=== PATIENT | male | born 1950 | race American Indian/Alaskan Native ===

== ENCOUNTER 2018-03-27 15:38 | Emergency (ER) | payer MEDICARE ==
[2018-03-27 15:57] VITALS: BMI 22.2
[2018-03-27] MEDS ORDERED: Lidocaine 2% MPF (5 ml) Inj ONE (16:57)
[2018-03-27] MEDS ORDERED: Sodium Chloride 0.9% 1,000 ML ONE (17:00)
--- NOTE | 2018-03-27 18:04 | RAD ---
PROCEDURE: Radiographs of the Right Shoulder HISTORY: dislocation r/o fx COMPARISON: None available. FINDINGS: BONES: No acute displaced fracture. The distal clavicle and underlying ribs appear intact. JOINTS: Anterior dislocation of the humeral head. SOFT TISSUES: Soft tissue swelling. No evidence of radiopaque foreign body. IMPRESSION: Anterior dislocation. Soft tissue swelling.
[2018-03-27 18:59] VITALS: O2SAT 98
--- NOTE | 2018-03-27 19:00 | RAD ---
Date of service: 03/27/2018 Indication: Reduction Single-view right shoulder Comparison: Right shoulder radiographs performed 03/27/18 Findings: Limited single view of the right shoulder postreduction. Alignment appears satisfactory however cannot be definitively assessed in the absence of orthogonal views. No acute displaced fracture evident. Impression: Limited single view of the right shoulder postreduction. Alignment appears satisfactory however cannot be definitively assessed in the absence of orthogonal views. No acute displaced fracture evident.
[2018-03-27 19:12] VITALS: BP 165/96; PULSE 74; RESP 14; TEMP 99.1
--- NOTE | 2018-03-27 19:56 | C.PDOC ---
History Of Present Illness 67 year old male presents to the ED complaining of right shoulder pain s/p trip and fall yesterday. Patient states he fell directly onto the right shoulder. Denies any head trauma or LOC. Patient now notes decreased ROM of the arm. No numbness or tingling. Time Seen by Provider: 03/27/18 16:07 Chief Complaint (Nursing): Upper Extremity Problem/Injury History Per: Patient History/Exam Limitations: no limitations Onset/Duration Of Symptoms: Days (2) Current Symptoms Are (Timing): Still Present Past Medical History Reviewed: Historical Data, Nursing Documentation, Vital Signs Vital Signs: Last Vital Signs Temp 99.1 F 03/27/18 19:12 Pulse 74 03/27/18 19:12 Resp 14 03/27/18 19:12 BP 165/96 H 03/27/18 19:12 Pulse Ox 98 03/27/18 20:10 - Medical History PMH: HTN - [facility] Procedures CLOSURE SKIN & SUBCUTANEOUS NEC (12/05/13) PSYCHIA INTERV/EVAL NEC (01/08/14) TETANUS TOXOID ADMINIST (12/05/13) Family History: States: Unknown Family Hx - Social History Hx Tobacco Use: Yes Hx Alcohol Use: Yes Hx Substance Use: No - Immunization History Hx Tetanus Toxoid Vaccination: Yes Hx Influenza Vaccination: No Hx Pneumococcal Vaccination: No Review Of Systems Except As Marked, All Systems Reviewed And Found Negative. Cardiovascular: Negative for: Chest Pain Respiratory: Negative for: Shortness of Breath Musculoskeletal: Positive for: Shoulder Pain (right), Other (Decreased ROM). Negative for: Arm Pain, Hand Pain Neurological: Negative for: Weakness, Numbness, Incoordination Physical Exam - Physical Exam Appears: Non-toxic, No Acute Distress Skin: Normal Color, Warm, Dry Head: Atraumatic, Normacephalic Eye(s): bilateral: Normal Inspection Neck: Normal ROM, Supple Chest: Symmetrical Cardiovascular: Rhythm Regular, No Murmur Respiratory: Normal Breath Sounds, No Accessory Muscle Use Extremity: Capillary Refill (< 2 sec), Deformity (Squaring off of the right shoulder), No Swelling, Other (Decreased ROM of right arm secondary to pain) Pulses: Left Radial: Normal, Right Radial: Normal Neurological/Psych: Oriented x3, Normal Speech, Normal Sensation Gait: Steady ED Course And Treatment O2 Sat by Pulse Oximetry: 98 (RA) Pulse Ox Interpretation: Normal - Other Rad Initial X-Ray R Shoulder X-Ray: Viewed By Me, Read By Radiologist Interpretation: FINDINGS: BONES: No acute displaced fracture. The distal clavicle and underlying ribs appear intact. JOINTS: Anterior dislocation of the humeral head. SOFT TISSUES: Soft tissue swelling. No evidence of radiopaque foreign body. IMPRESSION: Anterior dislocation. Soft tissue swelling. Post- Proc X-Ray R Shoulder X-Ray: Viewed By Me, Read By Radiologist Interpretation: Findings: Limited single view of the right shoulder postreduction. Alignment appears satisfactory however cannot be definitively assessed in the absence of orthogonal views. No acute displaced fracture evident. Impression: Limited single view of the right shoulder postreduction. Alignment appears satisfactory however cannot be definitively assessed in the absence of orthogonal views. No acute displaced fracture evident. Medical Decision Making Medical Decision Making: Initial Impression: Right shoulder pain, (+) deformity Initial Plan: --Tylenol 650 mg PO --Right shoulder x-ray --Will attempt shoulder reduction Shoulder reduced successfully *see procedure note below* Shoulder immobilizer placed to right upper extremity. Patient advised to follow up with orthopedics for further evaluation. Referral provided. Disposition Counseled Patient/Family Regarding: Diagnosis, Need For Followup, Rx Given - Disposition Referrals: Garett Juan III, MD [Staff Provider] - Disposition: HOME/ ROUTINE Disposition Time: 18:40 Condition: IMPROVED Additional Instructions: ESTEFANI LUONG, thank you for letting us take care of you today. Your provider was Jose Armando Casas DO and you were treated for FALL/RT SHOULDER PAIN. The emergency medical care you received today was directed at your acute symptoms. If you were prescribed any medication, please fill it and take as directed. It may take several days for your symptoms to resolve. Return to the Emergency Department if your symptoms worsen, do not improve, or if you have any other problems. Please contact your doctor or call one of the physicians/clinics you have been referred to that are listed on the Patient Visit Information form that is included in your discharge packet. Bring any paperwork you were given at discharge with you along with any medications you are taking to your follow up visit. Our treatment cannot replace ongoing medical care by a primary care provider outside of the emergency department. Thank you for allowing the [facility] team to be part of your care today. DO NOT TAKE YOUR ARM OUT OF THE SHOULDER IMMOBILIZER UNTIL YOU SEE THE ORTHOPEDIC DOCTOR. Follow up with the orthopedic doctor in 2-3 days. Prescriptions: Ibuprofen [Motrin] 600 mg PO Q6 PRN #20 tab PRN Reason: Pain, Moderate (4-7) Instructions: Shoulder Dislocation (DC) Forms: [facility] (Setswana) - POA Present On Arrival: Falls Or Trauma - Clinical Impression Clinical Impression: Shoulder dislocation - Scribe Statement The provider has reviewed the documentation as recorded by the Nellie Pickard Provider Attestation: All medical record entries made by the Shahriaribmelani were at my direction and personally dictated by me. I have reviewed the chart and agree that the record accurately reflects my personal performance of the history, physical exam, medical decision making, and the department course for this patient. I have also personally directed, reviewed, and agree with the discharge instructions and disposition. Procedures - Joint Reduction Joint Reduction Site: shoulder (R) Conscious Sedation: Yes (fentanyl 50mcg x2) Reduction Attempts: 1 Pre-Procedure NV Exam: Yes (NVI) Post-Procedure NV Exam: Yes (NVI) post joint reduction film: joint reduced Progress: Reduced by ED attending using scapular rotation.
== END 2018-03-27 19:15 | disposition home or self-care (01) ==
LOC: C.ER 15:38
DX: S43.004A Unspecified dislocation of right shoulder joint, initial encounter (principal); W01.0XXA Fall on same level from slipping, tripping and stumbling without subsequent striking against object, initial encounter; I10 Essential (primary) hypertension; Z72.0 Tobacco use
CPT/HCPCS: 23650; 73020; 73030; 96374; 99285; J3010

== ENCOUNTER 2018-07-01 11:16 | Emergency (ER) | payer MEDICARE ==
[2018-07-01 11:16] VITALS: BMI 22.2
--- NOTE | 2018-07-01 13:57 | RAD ---
PROCEDURE: Radiographs of the Left Shoulder HISTORY: r/o Lt. shoulder dislocation COMPARISON: No prior. FINDINGS: BONES: No acute displaced fracture. The distal clavicle and underlying ribs appear intact. JOINTS: Inferior medial displacement of the humeral head consistent with anterior dislocation SOFT TISSUES: No evidence of radiopaque foreign body. IMPRESSION: Anterior dislocation.
--- NOTE | 2018-07-01 14:30 | C.PDOC ---
History Of Present Illness 68 year old male presents to the ED complaining of left shoulder pain since he woke up this morning. Reports he fell while he was dancing last night when he landed on his left shoulder. States the same thing happened 3 months when he dislocated his right shoulder status post tripping and falling. Denies any chest pain, shortness of breath, neck pain, headache, nausea, vomiting, fever, or chills. Time Seen by Provider: 07/01/18 13:14 Chief Complaint (Nursing): Upper Extremity Problem/Injury History Per: Patient History/Exam Limitations: no limitations Onset/Duration Of Symptoms: Days Current Symptoms Are (Timing): Still Present Quality: "Pain" Exacerbating Factor(s): Movement Past Medical History Reviewed: Historical Data, Nursing Documentation, Vital Signs Vital Signs: Last Vital Signs Temp 98.7 F 07/01/18 11:26 Pulse 86 07/01/18 14:15 Resp 16 07/01/18 14:15 BP 144/98 H 07/01/18 14:15 Pulse Ox 99 07/01/18 14:15 - Medical History PMH: HTN Surgical History: No Surg Hx - [facility] Procedures CLOSURE SKIN & SUBCUTANEOUS NEC (12/05/13) PSYCHIA INTERV/EVAL NEC (01/08/14) TETANUS TOXOID ADMINIST (12/05/13) Family History: States: No Known Family Hx - Social History Hx Tobacco Use: Yes Hx Alcohol Use: Yes Hx Substance Use: No - Immunization History Hx Tetanus Toxoid Vaccination: Yes Hx Influenza Vaccination: No Hx Pneumococcal Vaccination: No Review Of Systems Constitutional: Negative for: Fever, Chills Cardiovascular: Negative for: Chest Pain, Palpitations Respiratory: Negative for: Shortness of Breath Gastrointestinal: Negative for: Nausea, Vomiting Musculoskeletal: Positive for: Shoulder Pain (left) Physical Exam - Physical Exam Appears: Non-toxic, No Acute Distress Skin: Warm, Dry, No Rash Head: Normacephalic Eye(s): bilateral: Normal Inspection Nose: Normal Oral Mucosa: Moist Neck: Normal ROM, Supple Cardiovascular: Rhythm Regular Respiratory: No Rales, No Rhonchi, No Wheezing Gastrointestinal/Abdominal: Soft, No Tenderness Extremity: Normal ROM (5/5 to left shoulder ), Tenderness (anterior left shoulder ), Capillary Refill (less than 2 sec to left shoulder ), Other (obvious asymmetry between left and right shoulder. ) ED Course And Treatment O2 Sat by Pulse Oximetry: 99 (RA) Pulse Ox Interpretation: Normal - Other Rad Shoulder XR X-Ray: Viewed By Me, Read By Radiologist Interpretation: Accession No. : [id number]. Patient Name / ID : CHERISE JARA / [id number]. Exam Date : 07/01/2018 11:43:26 ( Approved ). Study Comment : Sex / Age : M / 68Y. Creator : Tori Alexis MD. Dictator : Tori Alexis MD. Parboiler : Parking Technician : Tori Alexis MD. Approver2 : Report Date : 07/01/2018 13:53:49. My Comment : . PROCEDURE: Radiographs of the Left Shoulder. HISTORY: r/o Lt. shoulder dislocation. COMPARISON: No prior. FINDINGS: BONES: No acute displaced fracture. The distal clavicle and underlying ribs appear intact. JOINTS: Inferior medial displacement of the humeral head consistent with anterior dislocation. SOFT TISSUES: No evidence of radiopaque foreign body. IMPRESSION: Anterior dislocation. Medical Decision Making Medical Decision Making: Plan - Fentanyl 100mcg IVP - XR left shoulder - Shoulder reduction - Moderate sedation Results - XR shows shoulder is back in place and shoulder reduction was successful. 16:40 Sling placed by jd edwards developer. Instructed to take Tylenol or Motrin for pain and follow up with PMD. Patient ready and stable for discharge. 17:00 On reassessment, patient is resting comfortably, and is in no acute distress. Patient was instructed to follow up with physician/clinic in 1-2 days for further evaluation. Disposition Counseled Patient/Family Regarding: Studies Performed, Diagnosis, Need For Followup - Disposition Referrals: [facility] [Outside] [facility] [Outside] Disposition: HOME/ ROUTINE Disposition Time: 16:58 Condition: STABLE Additional Instructions: ESTEFANI LUONG, thank you for letting us take care of you today. Your provider was Marline Park MD and you were treated for PT FELL LEFT SHOULDER INJURY. The emergency medical care you received today was directed at your acute symptoms. If you were prescribed any medication, please fill it and take as directed. It may take several days for your symptoms to resolve. Return to the Emergency Department if your symptoms worsen, do not improve, or if you have any other problems. Please contact your doctor or call one of the physicians/clinics you have been referred to that are listed on the Patient Visit Information form that is included in your discharge packet. Bring any paperwork you were given at discharge with you along with any medications you are taking to your follow up visit. Our treatment cannot replace ongoing medical care by a primary care provider outside of the emergency department. Thank you for allowing the [facility] team to be part of your care today. Instructions: Shoulder Dislocation (DC), Moderate Sedation in Adults Forms: [employer] (Georgian), General Discharge Instructions - POA Present On Arrival: None - Clinical Impression Clinical Impression: Dislocation of shoulder, anterior, left, closed - Scribe Statement The provider has reviewed the documentation as recorded by the Scribe Britney Paneque All medical record entries made by the Scribe were at my direction and personally dictated by me. I have reviewed the chart and agree that the record accurately reflects my personal performance of the history, physical exam, medical decision making, and the department course for this patient. I have also personally directed, reviewed, and agree with the discharge instructions and disposition. ED Procedural Sedation - Pre Anesthesia Assessment Chief Complaint: Upper Extremity Problem/Injury Past Medical History: Medications Reviewed, Allergies Reviewed - Physical Exam/Review of Systems Vital Signs Reviewed: Yes Cardiovascular: Regular Rate and Rhythm Respiratory/Chest: Clear to Auscultation, Good Air Exchange Neurological: GCS=15 - Pre-Procedure Airway Assessment ASA Criteria: 1 - Healthy, normal. 2 - Mild systemic disease (No functional limitations, mildline obesity, DM withot complications, Hypertention). 3 - Severe systemic disease (Some functional limitation, stable angina, morbid obesity, controlled COPD/Asthma/CHF). 4 - Sever systemic disease constant threat to life (Unstable angina, active symptoms of COPD/Asthma, CHF/Hypertension. 5 - Moribund - Intra-Procedure (Medications) Medications Given: Discontinued Medications Fentanyl (Fentanyl) 100 mcg IVP ONCE ONE Stop: 07/01/18 14:03 Last Admin: 07/01/18 14:14 Dose: 100 mcg IVP Administration Document 07/01/18 14:14 OSCAR (Rec: 07/01/18 14:14 [id number]) Charges for Administration # of IVP Administrations 1
[2018-07-01] MEDS ORDERED: Midazolam 2 MG/2 ML VIAL ONE (14:54)
--- NOTE | 2018-07-01 16:24 | RAD ---
Date of service: 07/01/2018 PROCEDURE: Radiographs of the Left Shoulder HISTORY: POST REDUCTION COMPARISON: July 01, 2018 11:44. FINDINGS: BONES: No visible fracture identified. JOINTS: Failure to reduce anterior inferior dislocation. SOFT TISSUES: Normal. OTHER FINDINGS: None. IMPRESSION: Persistent dislocation of the left humeral head relative to glenoid.
--- NOTE | 2018-07-01 16:26 | RAD ---
Date of service: 07/01/2018 PROCEDURE: Radiographs of the Left Shoulder HISTORY: POST REDUCTION COMPARISON: July 01, 2018 FINDINGS: BONES: Satisfactory reduction of previously identified dislocation left shoulder. JOINTS: Normal. Glenohumeral and acromioclavicular joints preserved. No osteoarthritis. SOFT TISSUES: Normal. OTHER FINDINGS: None. IMPRESSION: Anatomic alignment restored to the left shoulder. No visible fractures.
[2018-07-01 17:51] VITALS: RESP 16
[2018-07-01 18:06] VITALS: BP 141/85; PULSE 69; TEMP 97.3; O2SAT 100
== END 2018-07-01 18:05 | disposition home or self-care (01) ==
LOC: C.ER 11:16
DX: S43.015A Anterior dislocation of left humerus, initial encounter (principal); W18.30XA Fall on same level, unspecified, initial encounter; Y93.41 Activity, dancing
CPT/HCPCS: 23650; 73030; 94770; 96374; 99285; J3010